=== PATIENT | female | born 1955 | race Caucasian/White ===

== ENCOUNTER → 2016-08-25 | Outpatient (CLI) | payer MEDICARE, SELFPAY | LOC: KOH-I 08-02 14:30 | DX: M25.511 Pain in right shoulder (principal); R93.7 Abnormal findings on diagnostic imaging of other parts of musculoskeletal system | CPT/HCPCS: 73221 ==

== ENCOUNTER → 2020-09-22 | Outpatient (CLI) | payer MEDICARE, SELFPAY ==
[~2020-09-22] MED LIST: ALDACTONE25 MG PO; ALL DAY ALLERGY10 M2 PO; ANTIVERT 12.512.5 MG PO; ARTHRITIS PAIN650 M1 PO; BETAPACE 80MG T80 MG PO; BUSPAR 10MG10 MG PO; CALCIUM PO; COUMADIN2 MG PO; COUMADIN5 MG PO; ELAVIL 10 MG TA10 MG PO; FLONASE 0.05% N16 GM; FUROSEMIDE20 MG PO; IRON325 M1 PO; KEFLEX CAP 500500 MG PO; KLOR-CON M2020 MEQ PO; LEVOTHYROXINE75 MC1 PO; LIPITOR TAB 1010 MG PO; LOPRESSOR 25 MG25 MG PO; LOVENOX80 MG/0.8 SC; MIRALAX17 GM PO; NEXIUM40 MG PO; NORVASC10 MG PO; OMEPRAZOLE20 M1 PO; OS-CAL 500+D31 EACH PO; PROVENTIL HFA6.7 GM INH; SINGULAIR10 MG PO; STOOL SOFTENER240 MG PO; SYNTHROID88 MCG PO; TESSALON PERLE100 MG PO; TYLENOL 500 MG500 MG PO; TYLENOL W/CODEIN1 E1 PO; ULTRAM50 MG PO; VENTOLIN HFA 66.7 GM INH; VITAMIN C1000 MG PO; XANAX 0.25 MG0.25 MG PO; ZOFRAN4 MG PO
[2020-09-22 08:12] LABS: HEMOGLOBIN 13.4 gm/dl (12.3-15.3); RED BLOOD COUNT 4.39 M/UL (4.00-5.10); WHITE BLOOD COUNT 5.8 K/UL (4.5-11.0)
[2020-09-22 08:23] LABS: BUN/CREATININE RATIO 17 (0-10)
== END ==
LOC: CATH 07:26
PROVIDERS: Internal Medicine Cardiovascular Disease
DX: I48.91 Unspecified atrial fibrillation (principal); I48.92 Unspecified atrial flutter; I47.2 Ventricular tachycardia; I49.5 Sick sinus syndrome; I49.01 Ventricular fibrillation; I11.0 Hypertensive heart disease with heart failure; I50.32 Chronic diastolic (congestive) heart failure; J45.909 Unspecified asthma, uncomplicated; E78.5 Hyperlipidemia, unspecified; E03.9 Hypothyroidism, unspecified; Z95.2 Presence of prosthetic heart valve; Z95.810 Presence of automatic (implantable) cardiac defibrillator; Z79.01 Long term (current) use of anticoagulants; Z95.1 Presence of aortocoronary bypass graft; Z82.49 Family history of ischemic heart disease and other diseases of the circulatory system; Z79.899 Other long term (current) drug therapy
CPT/HCPCS: 36415; 80048; 85027; 92960; 93005; J1200; J1742; J2250; J2310; J3010; J7040

== ENCOUNTER → 2020-09-30 | Outpatient (CLI) | payer MEDICARE, SELFPAY | LOC: HEART 5 14:22 | DX: I48.91 Unspecified atrial fibrillation (principal); I48.92 Unspecified atrial flutter; I08.2 Rheumatic disorders of both aortic and tricuspid valves; I37.1 Nonrheumatic pulmonary valve insufficiency; R93.1 Abnormal findings on diagnostic imaging of heart and coronary circulation; I27.20 Pulmonary hypertension, unspecified; Z95.2 Presence of prosthetic heart valve; Z95.0 Presence of cardiac pacemaker | CPT/HCPCS: 93306 ==

== ENCOUNTER 2021-07-13 00:10 | Emergency (ER) | payer MEDICARE | END 2021-07-13 02:32 | disposition home or self-care (01) | LOC: ER1 00:10 | DX: S06.0X0A Concussion without loss of consciousness, initial encounter (principal); S80.02XA Contusion of left knee, initial encounter; S80.01XA Contusion of right knee, initial encounter; W19.XXXA Unspecified fall, initial encounter; Z79.899 Other long term (current) drug therapy | CPT/HCPCS: 70450; 73562; 99284 ==

== ENCOUNTER → 2021-09-27 | Outpatient (CLI) | payer MEDICARE ==
[~2021-09-27] MED LIST changes: +AMITRIPTYLINE H10 MG PO; +CALCIUM 600 +1 EA10 PO; -CALCIUM PO; -COUMADIN2 MG PO; -ELAVIL 10 MG TA10 MG PO; +KEPPRA 500 MG500 MG PO; -LEVOTHYROXINE75 MC1 PO; +LEVOTHYROXINE75 MCG PO; +LORATADINE10 MG PO; -NORVASC10 MG PO; +NORVASC5 MG PO; -OMEPRAZOLE20 M1 PO; +OMEPRAZOLE20 MG PO; +WARFARIN SODIUM2 MG PO
== END ==
LOC: KOH-I 15:30
DX: S09.8XXA Other specified injuries of head, initial encounter (principal); S06.339A Contusion and laceration of cerebrum, unspecified, with loss of consciousness of unspecified duration, initial encounter; S06.0X9A Concussion with loss of consciousness of unspecified duration, initial encounter; F07.81 Postconcussional syndrome
CPT/HCPCS: 70450

== ENCOUNTER → 2021-09-29 | Outpatient (CLI) | payer MEDICARE | LOC: EXRD 15:23 | DX: M79.672 Pain in left foot (principal) | CPT/HCPCS: 73620 ==

== ENCOUNTER → 2021-10-21 | Outpatient (CLI) | payer MEDICARE, OTHER | LOC: EXRD 14:19 | DX: R13.10 Dysphagia, unspecified (principal); E03.9 Hypothyroidism, unspecified | CPT/HCPCS: 76536 ==